=== PATIENT | male | born 1945 | race Caucasian/White ===

== ENCOUNTER → 2017-12-03 | Outpatient (CLI) | payer OTHER, MEDICARE ==
[~2017-12-03] MED LIST: AMBIEN 5 MG TABL5 M1 PO; ASPIRIN325 PO; ATORVASTATIN CA40 MG PO; CLARITIN10 MG PO; LOPRESSOR25 PO; NAPROSYN500 MG PO; NEXIUM20 MG PO; NORCO 5-325 TA1 EACH PO; NORVASC5 MG PO; ZESTRIL40 MG PO
== END ==
LOC: ULTRA 12:49
DX: K76.0 Fatty (change of) liver, not elsewhere classified (principal)

== ENCOUNTER → 2018-06-30 | Outpatient (CLI) | payer OTHER, MEDICARE | LOC: RAD 11:55 | DX: K80.20 Calculus of gallbladder without cholecystitis without obstruction (principal); N20.0 Calculus of kidney; K76.0 Fatty (change of) liver, not elsewhere classified; R07.81 Pleurodynia; K57.30 Diverticulosis of large intestine without perforation or abscess without bleeding; K40.90 Unilateral inguinal hernia, without obstruction or gangrene, not specified as recurrent; N28.89 Other specified disorders of kidney and ureter; M47.816 Spondylosis without myelopathy or radiculopathy, lumbar region ==

== ENCOUNTER → 2018-07-08 | Outpatient (CLI) | payer OTHER, MEDICARE | LOC: ULTRA 09:03 | DX: N28.1 Cyst of kidney, acquired (principal); N20.0 Calculus of kidney ==

== ENCOUNTER 2019-03-19 17:35 | Emergency (ER) | payer OTHER, MEDICARE ==
[~2019-03-19] VITALS: Ht 172.7 cm; Wt 93.0 kg
[~2019-03-19 17:35] MED LIST changes: -ATORVASTATIN CA40 MG PO; +LIPITOR80 MG PO
[2019-03-19 18:32] LABS: ABSOLUTE NEUTROPHILS 6.6 thou/uL (1.4-8.2); BASOPHILS 1.2 % (0.0-2.0); EOSINOPHILS 1.9 % (0.0-3.0); HEMATOCRIT 43.3 % (42.0-52.0); HEMOGLOBIN 14.9 gm/dL (14.0-18.0); LYMPHOCYTES 17.3 % (24.0-44.0); MCH 32.8 pg (26.0-34.0); MCHC 34.5 g/dL (28.0-37.0); MONOCYTES 9.6 % (1.0-8.0); PLATELET COUNT 291 thou/uL (150-400); RBC 4.55 mil/uL (4.50-6.00); RDW 13.3 % (10.5-14.5); WBC 9.5 thou/uL (4.0-11.0)
[2019-03-19 18:36] LABS: ANION GAP 11 mmol/L (7-16); BUN 25 mg/dL (7-18); CALCIUM 8.5 mg/dL (8.5-10.1); CHLORIDE 104 mmol/L (98-107); CO2 25 mmol/L (21-32); CREATININE 1.5 mg/dL (0.7-1.3); GLUCOSE 119 mg/dL (74-106); SODIUM 140 mmol/L (136-145)
[2019-03-19 18:47] LABS: ALBUMIN 3.8 g/dL (3.4-5.0); SGOT 85 U/L (15-37); SGPT 84 U/L (30-65); TOTAL BILIRUBIN 0.7 mg/dL (<0.1-1.0); TROPONIN-I <0.06 ng/mL (<0.06)
[2019-03-19 19:19] LABS: URINE BILIRUBIN NEGATIVE (Negative); URINE BLOOD NEGATIVE (Negative); URINE CLARITY CLEAR; URINE COLOR YELLOW; URINE GLUCOSE-RANDOM* NEGATIVE (Negative); URINE KETONES NEGATIVE (Negative); URINE NITRITE-REFLEX NEGATIVE (Negative); URINE PROTEIN (DIPSTICK) NEGATIVE (Negative)
[2019-03-19] MEDS ORDERED: BELVIQ10 MG PO (19:20)
[2019-03-19 19:21] LABS: URINE LEUKOCYTES-REFLEX 1+ (Negative)
[2019-03-19] MEDS ORDERED: CETIRIZINE HCL5 MG PO (19:22)
[2019-03-19] MEDS ORDERED: CYMBALTA20 MG PO (19:22)
[2019-03-19] MEDS ORDERED: OMEPRAZOLE 20 M20 M1 PO (19:23)
[2019-03-19] MEDS ORDERED: DIFF-STAT POWD1 EACH PO (19:24)
[2019-03-19] MEDS ORDERED: VITAMIN D3400 UNIT PO (19:24)
[2019-03-19 19:36] LABS: BACTERIA-REFLEX 1-9 Few /HPF (None Seen); CASTS None Seen /LPF (None Seen); CRYSTALS None Seen /LPF (None Seen); SQUAMOUS None Seen /LPF (0-3); URINE RBC None Seen /HPF (0-2)
[2019-03-19 22:30] VITALS: BP 126/69
--- NOTE | 2019-03-22 07:54 | EKG ---
[place] [address] [address] [place] [address] ELECTROCARDIOGRAM REPORT Name: RAQUEL WADE Room #: [facility] [id number] ������������������ Admission: 03/19/19 ������������������ Attend Phys: Discharge: 03/19/19 ������������������ Date of : 49 Report #: [id number] ����������������������������������������������������������������� [id number] THIS REPORT FOR: //name// [facility] ED Test Date: 2019-03-19 Test Time: 18:06:07 Pat Name: RAQUEL WADE Department: Room: Gender: [employer]: : 1945 Requested By: Carlos Baxter Order Number: [id number] MD: Aldair Jennings Measurements Intervals [place] Rate: 54 P: 9 WI: 184 QRS: 13 QRSD: 95 T: 20 QT: 438 QTc: 416 Interpretive Statements Sinus bradycardia Otherwise normal tracing No previous ECG available for comparison Electronically Signed On 03-22-2019 7:53:52 CDT by Aldair Jennings [email or web address] ��������������������������������������������� <ELECTRONICALLY SIGNED> ���������������������������������������� By: Aldair Jennings MD, [facility] ��������������������������������������������� 03/22/19 0753 1806 1806 Aldair Jennings MD, FACC /EPI
== END 2019-03-19 22:30 | disposition home or self-care (01) ==
LOC: ER 17:35
PROVIDERS: Emergency Medicine
DX: R55 Syncope and collapse (principal); I10 Essential (primary) hypertension; E78.00 Pure hypercholesterolemia, unspecified; K21.9 Gastro-esophageal reflux disease without esophagitis; Z95.5 Presence of coronary angioplasty implant and graft; Z87.891 Personal history of nicotine dependence

== ENCOUNTER → 2019-10-20 | Outpatient (CLI) | payer OTHER ==
[~2019-10-20] VITALS: Ht 172.7 cm; Wt 90.7 kg
[~2019-10-20] MED LIST changes: +BELVIQ10 MG PO; +CETIRIZINE HCL5 MG PO; +CYMBALTA20 MG PO; +DIFF-STAT POWD1 EACH PO; +OMEPRAZOLE 20 M20 M1 PO; +VITAMIN D3400 UNIT PO
--- NOTE | 2019-10-22 11:38 | P ---
[facility] [place] [address] PROCEDURE REPORT Name: RAQUEL WADE Room #: [facility] [id number] Admission: 10/20/19 Attend Phys: Sandeep Naranjo Discharge: Date of : 49 Report #: [id number] THIS REPORT FOR: //name// CC: Sandeep Chen DATE OF SERVICE: 10/20/2019 PROCEDURE PERFORMED: Colonoscopy. HISTORY OF PRESENT ILLNESS: The patient is a 73-year-old male with a history of colon polyps 5 years ago, here for routine followup. Denies any symptoms. No family history of colon cancer. DESCRIPTION OF PROCEDURE: The risks and benefits of the procedure were explained to the patient, those risks including but not limited to bleeding, perforation and the risk of sedation. He understood these risks and gave informed consent. Sedation was given using propofol per anesthesia. Next, a digital rectal exam was initially performed, which was normal. Next, using a standard Olympus colonoscope, the scope was placed in the patient's anus and advanced under direct vision to the cecum. The overall prep was excellent. The cecum and ileocecal valve were normal in appearance. Ascending colon was normal. Throughout the transverse, descending and sigmoid colon, multiple diverticula were noted. No evidence of inflammation, otherwise normal. The rectal mucosa was normal. On retroflexion, small nonbleeding internal hemorrhoids were noted. The scope was then withdrawn and the procedure terminated. The patient tolerated the procedure well. IMPRESSION: 1. Diverticulosis. 2. Small internal hemorrhoids. 3. Otherwise, normal colonoscopy. RECOMMENDATIONS: Repeat colonoscopy in 10 years. Thank you for allowing me to participate in his care. <ELECTRONICALLY SIGNED> By: Sandepe Purvis MD 10/22/19 1138 1119 2318 Sandeep Purvis MD /nt
== END | disposition home or self-care (01) ==
LOC: GI 09:17
DX: Z12.11 Encounter for screening for malignant neoplasm of colon (principal); Z86.010 Personal history of colon polyps; K57.30 Diverticulosis of large intestine without perforation or abscess without bleeding; K64.8 Other hemorrhoids; I10 Essential (primary) hypertension; E78.5 Hyperlipidemia, unspecified; K21.9 Gastro-esophageal reflux disease without esophagitis; Z98.890 Other specified postprocedural states; Z79.899 Other long term (current) drug therapy; Z79.82 Long term (current) use of aspirin; Z86.19 Personal history of other infectious and parasitic diseases
CPT/HCPCS: 62110; 62900

== ENCOUNTER → 2020-09-11 | Outpatient (CLI) | payer OTHER | LOC: ULTRA 09:43 | PROVIDERS: ATTEND Otolaryngology Plastic Surgery within the Head & Neck | DX: E04.2 Nontoxic multinodular goiter (principal) ==